=== PATIENT | female | born 1995 | race Hispanic/Latino ===

== ENCOUNTER 2018-11-28 00:43 | Emergency (ER) | payer BC ==
[~2018-11-28] VITALS: Ht 149.9 cm; Wt 90.7 kg
--- OUTSIDE RECORDS SUMMARY | 2018-11-28 00:46 | XMS REPORT ---
Author Author Admin, Media Organization [facility] [employer] BLOCK[employer]PER[employer] Address Unknown Phone Unavailable Allergies, Adverse Reactions, Alerts Allergy Name Reaction Description Start Date Severity Status Provider No Known Allergies Sarah Doe MA Conditions or Problems Problem Name Problem Code Onset Date Status Entry Date Provider Comment Standard Description Annotate Contraceptive method surveillance V25.40 Active Vangie Cruz MD Encounter for contraceptive surveillance, unspecified Contraceptive management V25.9 Active Vangie Cruz MD Encounter for unspecified contraceptive management Contraception counseling V25.09 Active Vangie Cruz MD Encounter for other general counseling and advice on contraceptive management Immunization due V15.83 Active Vangie Cruz MD Personal history of underimmunization status 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 Vangie Cruz MD Special investigations and examinations - Gynecological examination Screening for std V74.5 Active Vangie Cruz MD Screening examination for venereal disease AMENORRHEA 626.0 Active Vangie Cruz MD Absence of menstruation Medication List Medication Instructions Start Date Stop Date Generic Name NDC Status Provider Patient Instruction LOESTRIN 1/20 (21) 1-20 MG-MCG ORAL TABLET 1 tab By Mouth LOESTRIN 1/20 (21) 1-20 MG-MCG ORAL TABLET 2525250 NORETHINDRONE ACET-ETHINYL EST Inactive SPRINTEC 28 0.25-35 MG-MCG ORAL TABLET 1 tab By Mouth qd SPRINTEC 28 0.25-35 MG-MCG ORAL TABLET [id number] NORGESTIMATE-ETH ESTRADIOL Inactive LOESTRIN 1/20 (21) 1-20 MG-MCG ORAL TABLET 1 tab By Mouth NORETHINDRONE ACET-ETHINYL EST [id number] No Longer Active Vangie Cruz MD Active SPRINTEC 28 0.25-35 MG-MCG ORAL TABLET 1 tab By Mouth qd NORGESTIMATE-ETH ESTRADIOL [id number] No Longer Active Vangie Cruz MD Active Immunizations Vaccine Administration Date Value Standard Description Human Papillomavirus vaccine (Gardasil) #2, (HPV #2) given human papilloma virus vaccine, quadrivalent Human Papillomavirus vaccine (Gardasil) #2, (HPV #2) Drug Name Gardasil 9 human papilloma virus vaccine, quadrivalent Human Papilloma Virus Vaccine (Gardasil) (HPV 1) Administration Date given human papilloma virus vaccine, quadrivalent Vital Signs Date Name Value Unit Range Description blood pressure, diastolic 76 mm[Hg] BP charlton blood pressure, systolic 112 mm[Hg] BP sys height E&M 60 [in_us] Bdy height pulse rate E&M 79 /min Heart rate respiratory rate E&M 17 /min Resp rate temperature E&M 98.6 [degF] Body temperature weight E&M 183 [lb_av] Weight Measured blood pressure, diastolic 80 mm[Hg] BP charlton blood pressure, systolic 112 mm[Hg] BP sys height E&M 60 [in_us] Bdy height pulse rate E&M 86 /min Heart rate respiratory rate E&M 18 /min Resp rate temperature E&M 98.8 [degF] Body temperature weight E&M 183.50 [lb_av] Weight Measured blood pressure, diastolic 79 mm[Hg] BP charlton blood pressure, systolic 113 mm[Hg] BP sys height E&M 60 [in_us] Bdy height pulse rate E&M 79 /min Heart rate temperature E&M 97.9 [degF] Body temperature weight E&M 179 [lb_av] Weight Measured blood pressure, diastolic 80 mm[Hg] BP charlton blood pressure, systolic 118 mm[Hg] BP sys height E&M 60.63 [in_us] Bdy height pulse rate E&M 88 /min Heart rate temperature E&M 98.5 [degF] Body temperature weight E&M 178.50 [lb_av] Weight Measured blood pressure, diastolic 81 mm[Hg] BP charlton blood pressure, systolic 101 mm[Hg] BP sys height E&M 60.63 [in_us] Bdy height pulse rate E&M 83 /min Heart rate respiratory rate E&M 18 /min Resp rate temperature E&M 98.1 [degF] Body temperature weight E&M 177.50 [lb_av] Weight Measured Diagnostic Results Date Name Value Unit Range Description Office Visit: Acute Visit-s11 - Urinalysis urine color yellow Lab Report: Ct, Ng, Trich vag by SHABANA - Microbiology Neisseria gonorrhoeae DNA probe Negative Negative Office Visit: Acute Visit-s11 - Urinalysis bilirubin, urine negative glucose, urine, semiquantitative negative protein, urine, semiquantitative (dipstick) negative Office Visit: Adult Followup / HPV - Chemistry beta HCG, urine, semiquantitative negative Lab Report: RPR, Rfx Qn RPR/Confirm TP, Panel [id number], HCV Antibody, HBsA ... - Serology rapid plasma reagin antibody, serum Non Reactive Non Reactive Lab Report: RPR, Rfx Qn RPR/Confirm TP, Panel [id number], HCV Antibody, HBsA ... - Chemistry hepatitis B surface antigen Negative Negative Office Visit: Acute Visit-s11 - Urinalysis appearance, urine clear blood in urine (hemoglobin) by dipstick negative Lab Report: Ct, Ng, Trich vag by SHABANA - Lab chlamydia DNA probe Negative Negative Office Visit: Acute Visit-s11 - Urinalysis leukocyte esterase, urine, by dipstick negative urobilinogen, urine, semiquantitative (dipstick) negative specific gravity, urine 1.015 pH, urine, semiquantitative 5.0 nitrite, urine, semiquantitative negative ketones, urine, by test strip negative Lab Report: RPR, Rfx Qn RPR/Confirm TP, Panel [id number], HCV Antibody, HBsA ... - Serology hepatitis C antibody, serum <0.1 0.0-0.9 Encounters Date Encounter Provider Code Facility 09:09:54 CDT Est Patient Problem Focus - 63023 Vangie Cruz MD CPT-51415 [facility] HAT BLOCKING OPERATOR 12:04:58 CDT Est Patient Exp Problem - 07668 Vangie Cruz MD CPT-72829 [facility] HAT BLOCKING OPERATOR 15:57:37 CDT Est Patient Exp Problem - 05106 Vangie Cruz MD CPT-16344 [facility] HAT BLOCKING OPERATOR 16:42:44 CDT Est Patient Exp Problem - 63803 Vangie Cruz MD CPT-42966 [facility] HAT BLOCKING OPERATOR 14:37:57 CDT Est Patient Exp Problem - 57980 Vangie Cruz MD CPT-23099 [facility] HAT BLOCKING OPERATOR 16:14:55 CDT New Patient Detailed - 74036 Vangie Cruz MD CPT-61214 [facility] HAT BLOCKING OPERATOR Procedures Code Procedure Name Date Entry Date Standard Description CPT-80943 Insertion, non-biodegradable drug delivery implant (Nexplanon) 17:29:15 CDT CPT-J7307 Etonogestrel (contraceptive) implant system, including implant and supplies 17:29:15 CDT CPT-79923 Gardasil (HPV) 9 - valent 14:37:58 CDT CPT-02963 Est Patient Well Exam (18 - 39 Yrs) - [id number] 14:56:49 CDT
--- OUTSIDE RECORDS SUMMARY | 2018-11-28 00:47 | XMS REPORT ---
[facility] Address Unknown Phone Unavailable Care Team Providers Care Director Graphics Name Role Phone Unavailable Unavailable Payers Payer Name Policy Type Policy Number Effective Date Expiration Date Problems This patient has no known problems. Allergies, Adverse Reactions, Alerts Allergy Name Allergy Type Status Severity Reaction(s) Onset Date Inactive Date Treating Clinician Comments No Known Allergies DA Active U 2018-06-08 00:00:00 No Known Allergies DA Active U 2017-08-25 00:00:00 Medications This patient has no known medications. Results Test Description Test Time Test Comments Text Results Atomic Results Result Comments BASIC METABOLIC PANEL 2018-10-13 03:35:00 SODIUM (test code=NA) 143 mmol/L 136-145 POTASSIUM (test code=K) 3.7 mmol/L 3.5-5.1 CHLORIDE (test code=CL) 108.0 mmol/L 98-107 CARBON DIOXIDE (test code=CO2) 28.0 mmol/L 21-32 ANION GAP (test code=GAP) 10.7 10-20 GLUCOSE (test code=GLU) 94 mg/dL 74-106 BLOOD UREA NITROGEN (test code=BUN) 14 mg/dL 7-18 GLOMERULAR FILTRATION RATE (test code=GFR) > 60 mL/min >=60 Estimated GFR by using Modified MDRD formula.Chronic kidney disease is defined as either kidney damageor GFR <60 mL/min/1.73 m2 for >3 months. CREATININE (test code=CREAT) 0.60 mg/dL 0.55-1.02 Note change in reference range due to change in reagent. BUN/CREATININE RATIO (test code=BUN/CREA) 23.3 10-20 CALCIUM (test code=CA) 8.8 mg/dL 8.5-10.1 HEPATIC FUNCTION [id number] 03:35:00* Test Item Value Reference Range Comments TOTAL PROTEIN (test code=PROT) 8.1 gram/dL 6.4-8.2 ALBUMIN (test code=ALB) 4.1 g/dL 3.4-5.0 GLOBULIN (test code=GLOB) 4.0 gram/dL 2.7-4.2 ALBUMIN/GLOBULIN RATIO (test code=A/G) 1.0 0.75-1.50 BILIRUBIN TOTAL (test code=BILT) 0.40 mg/dL 0.0-1.0 BILIRUBIN DIRECT (test code=BILD) 0.13 mg/dL 0.0-0.20 SGOT/AST (test code=AST) 11 IUnit/L 15-37 SGPT/ALT (test code=ALT) 28 IUnit/L 12-78 ALKALINE PHOSPHATASE TOTAL (test code=ALKP) 110 IUnit/L 45-117 Note change in reference range due to change in reagent. [id number] 03:35:00* Test Item Value Reference Range Comments LIPASE (test code=LIP) 96 U/L 73.0-393.0 HCG SERUM [id number] 03:35:00* Test Item Value Reference Range Comments HCG SERUM QUAL (test code=HCGQL) NEGATIVE NEGATIVE This HCGQL test is NOT applicable for MALE patients.Check with nurse about probable order error.If Tumor Marker Test needed, nurse should order test "HCGTU"(Test #550.93428) URINALYSIS [id number] 03:24:00* Test Item Value Reference Range Comments UA COLOR (test code=COLU) YELLOW YELLOW UA APPEARANCE (test code=APPU) SLIGHTLY CLOUDY CLEAR UA GLUCOSE DIPSTICK (test code=DGLUU) NEGATIVE mg/dL NEGATIVE UA BILIRUBIN DIPSTICK (test code=BILU) NEGATIVE mg/dL NEGATIVE UA KETONE DIPSTICK (test code=KETU) 5 (Trace) mg/dL NEGATIVE UA SPECIFIC GRAVITY (test code=SGU) 1.027 1.001-1.035 UA BLOOD DIPSTICK (test code=GIOVANY) 2+ (Moderate) mg/dL NEGATIVE UA PH DIPSTICK (test code=TATYANA) 5.0 5.0-8.0 UA PROTEIN DIPSTICK (test code=PROU) 30 (1+) mg/dL NEGATIVE UA UROBILINIOGEN DIPSTICK (test code=URO) NEGATIVE mg/dL NEGATIVE UA NITRITE DIPSTICK (test code=GARCÍA) NEGATIVE NEGATIVE UA LEUKOCYTE ESTERASE W REFLEX (test code=LEUUR) NEGATIVE Rita/uL NEGATIVE UA WBC (test code=WBCU) 0-5 per HPF 0-5 UA RBC (test code=RBCU) 6-10 #/HPF 0-5 UA EPITHELIAL CELLS (test code=EPIU) MOD per HPF FEW UA BACTERIA (test code=BACU) MODERATE #/HPF NONE UA MUCUS (test code=MUCU) MANY #/LPF FEW Urine Source? Clean CatchBASIC METABOLIC [id number] 03:21:00* Test Item Value Reference Range Comments SODIUM (test code=NA) 143 mmol/L 136-145 POTASSIUM (test code=K) 3.7 mmol/L 3.5-5.1 CHLORIDE (test code=CL) 108.0 mmol/L 98-107 CARBON DIOXIDE (test code=CO2) mmol/L 21-32 ANION GAP (test code=GAP) 10-20 GLUCOSE (test code=GLU) mg/dL 74-106 BLOOD UREA NITROGEN (test code=BUN) mg/dL 7-18 GLOMERULAR FILTRATION RATE (test code=GFR) mL/min >=60 CREATININE (test code=CREAT) mg/dL 0.55-1.02 BUN/CREATININE RATIO (test code=BUN/CREA) 10-20 CALCIUM (test code=CA) mg/dL 8.5-10.1 HEPATIC FUNCTION [id number] 03:21:00* Test Item Value Reference Range Comments TOTAL PROTEIN (test code=PROT) gram/dL 6.4-8.2 ALBUMIN (test code=ALB) g/dL 3.4-5.0 GLOBULIN (test code=GLOB) gram/dL 2.7-4.2 ALBUMIN/GLOBULIN RATIO (test code=A/G) 0.75-1.50 BILIRUBIN TOTAL (test code=BILT) mg/dL 0.0-1.0 BILIRUBIN DIRECT (test code=BILD) mg/dL 0.0-0.20 SGOT/AST (test code=AST) IUnit/L 15-37 SGPT/ALT (test code=ALT) IUnit/L 12-78 ALKALINE PHOSPHATASE TOTAL (test code=ALKP) IUnit/L 45-117 [id number] 03:21:00* Test Item Value Reference Range Comments LIPASE (test code=LIP) U/L 73.0-393.0 HCG SERUM [id number] 03:21:00* Test Item Value Reference Range Comments HCG SERUM QUAL (test code=HCGQL) NEGATIVE BASIC METABOLIC [id number] 03:21:00* Test Item Value Reference Range Comments SODIUM (test code=NA) 143 mmol/L 136-145 POTASSIUM (test code=K) 3.7 mmol/L 3.5-5.1 CHLORIDE (test code=CL) 108.0 mmol/L 98-107 CARBON DIOXIDE (test code=CO2) mmol/L 21-32 ANION GAP (test code=GAP) 10-20 GLUCOSE (test code=GLU) mg/dL 74-106 BLOOD UREA NITROGEN (test code=BUN) mg/dL 7-18 GLOMERULAR FILTRATION RATE (test code=GFR) mL/min >=60 CREATININE (test code=CREAT) mg/dL 0.55-1.02 BUN/CREATININE RATIO (test code=BUN/CREA) 10-20 CALCIUM (test code=CA) mg/dL 8.5-10.1 HEPATIC FUNCTION [id number] 03:21:00* Test Item Value Reference Range Comments TOTAL PROTEIN (test code=PROT) gram/dL 6.4-8.2 ALBUMIN (test code=ALB) g/dL 3.4-5.0 GLOBULIN (test code=GLOB) gram/dL 2.7-4.2 ALBUMIN/GLOBULIN RATIO (test code=A/G) 0.75-1.50 BILIRUBIN TOTAL (test code=BILT) mg/dL 0.0-1.0 BILIRUBIN DIRECT (test code=BILD) mg/dL 0.0-0.20 SGOT/AST (test code=AST) IUnit/L 15-37 SGPT/ALT (test code=ALT) IUnit/L 12-78 ALKALINE PHOSPHATASE TOTAL (test code=ALKP) IUnit/L 45-117 [id number] 03:21:00* Test Item Value Reference Range Comments LIPASE (test code=LIP) U/L 73.0-393.0 HCG SERUM [id number] 03:21:00* Test Item Value Reference Range Comments HCG SERUM QUAL (test code=HCGQL) NEGATIVE NEGATIVE This HCGQL test is NOT applicable for MALE patients.Check with nurse about probable order error.If Tumor Marker Test needed, nurse should order test "HCGTU"(Test #550.61598) CBC W/O [id number] 02:57:00* Test Item Value Reference Range Comments WHITE BLOOD CELL (test code=WBC) 12.9 K/mm3 4.5-12.5 RED BLOOD CELL (test code=RBC) 5.41 mill/mm3 3.7-5.2 HEMOGLOBIN (test code=HGB) 15.0 gram/dL 11.5-15.5 HEMATOCRIT (test code=HCT) 49.3 % 36.0-46.0 MEAN CELL VOLUME (test code=MCV) 91.1 fL 80-98 MEAN CELL HGB (test code=MCH) 27.7 picogram 27.0-33.0 MEAN CELL HGB CONCETRATION (test code=MCHC) 30.4 gram/dL 33.0-36.0 RED CELL DISTRIBUTION WIDTH (test code=RDW) 12.1 % 11.6-16.2 PLATELET COUNT (test code=PLT) 169 K/mm3 150-450 MEAN PLATELET VOLUME (test code=MPV) 12.4 fL 6.7-11.0
[2018-11-28] MEDS ORDERED: KETOROLAC TROMETHAMINE 60 MG/2 ML VIAL IM ONE (01:30)
[2018-11-28] MEDS ORDERED: KETOROLAC TROMETHAMINE 30 MG/ML VIAL IV STA (01:31)
[2018-11-28] MEDS ORDERED: KETOROLAC TROMETHAMINE 30 MG/ML VIAL ONE (01:36)
[2018-11-28] MEDS ORDERED: ONDANSETRON ODT8 MG PO (01:56)
[2018-11-28] MEDS ORDERED: MEDROXYPROGESTE10 MG PO (01:58)
[2018-11-28] MEDS ORDERED: IBUPROFEN400 MG PO (01:59)
[2018-11-28 02:05] VITALS: BP 122/76
== END 2018-11-28 02:09 | disposition home or self-care (01) ==
LOC: FSED 00:43
DX: N94.4 Primary dysmenorrhea (principal); N92.0 Excessive and frequent menstruation with regular cycle; N93.8 Other specified abnormal uterine and vaginal bleeding
CPT/HCPCS: 80048; 81003; 81025; 85025; 85610; 99283; J1885